=== PATIENT | male | born 1950 | race Caucasian/White ===

== ENCOUNTER → 2023-09-01 08:52 | Outpatient (REF) | payer MEDICARE, BC, SELFPAY | LOC: DHCBC HW 08:52 | PROVIDERS: ATTENDING PHYSICIAN Internal Medicine Cardiovascular Disease; FAMILY PHYSICIAN Internal Medicine | DX: H34.239 Retinal artery branch occlusion, unspecified eye (principal) | CPT/HCPCS: 93306 ==

== ENCOUNTER → 2023-09-20 10:14 | Outpatient (REF) | payer MEDICARE, BC, SELFPAY | LOC: HWRAD 10:14 | PROVIDERS: ATTENDING PHYSICIAN Internal Medicine | DX: M54.50 Low back pain, unspecified (principal) | CPT/HCPCS: 72110 ==

== ENCOUNTER → 2023-11-05 12:33 | Outpatient (REF) | payer MEDICARE, BC, SELFPAY | LOC: HWRAD 12:33 | PROVIDERS: ATTENDING PHYSICIAN Internal Medicine | DX: R10.9 Unspecified abdominal pain (principal) | CPT/HCPCS: 74176 ==

== ENCOUNTER 2024-01-10 06:09 | Day surgery (SDC) | payer MEDICARE, BC, SELFPAY ==
[2024-01-10] VITALS (8 sets, daily range): BP systolic 163–186; BP diastolic 72–104
[2024-01-10] MEDS: TYLENOL 1000 MG PO (06:37)
[2024-01-10] MEDS: NORMOSOL-R 1000 IV (06:38)
--- NOTE | 2024-01-10 07:02 | HP.FOC2 ---
Focused History & Physical
Chief Complaint
HPI:
Chief Complaint: Right inguinal hernia
HPI / Indication for Planned Procedure: 73-year-old male recently seen in outpatient surgical evaluation secondary to right inguinal swelling and discomfort. Symptoms particularly prominent over the past few months. Hernia remains reducible.
Outpatient evaluation confirmed the presence of reducible right inguinal hernia. He presents today for scheduled operative correction.
Relevant Past Medical History: Other (Gout, BPH, hypercholesterolemia, hypertension, CKD 3, left renal artery stenosis, osteoarthritis, CAD)
Relevant Social History: Negative
Relevant Family History: Negative
Relevant Past Surgical History: Positive for (Multiple coronary stents, cardiac catheterization, CABG times 08/2020)
Review of Systems
Review of Pertinent Systems: All Systems Negative
Medication
See Medication form for detailed medications: Yes
Medication List (including Herbals & OTC):
cholecalciferol (vitamin D3) 25 mcg (1,000 unit) chewable tablet 1,000 unit PO DAILY Supplement 06/17/10
lorazepam 1 mg tablet 1 mg PO BIDPRN PRN anxiety 06/17/10
sertraline 50 mg tablet 50 mg PO BID Mental health 06/17/10
docusate sodium 100 mg capsule (Colace) 100 mg PO PRN PRN constipation 03/09/21
simvastatin 40 mg tablet 30 mg PO DAILY High cholesterol 03/09/21
acetaminophen 325 mg tablet 650 mg (2 x 325 mg) PO Q6HPRN PRN mild pain,headache,temp >101F 03/30/21
allopurinol 100 mg tablet 100 mg PO DAILY 03/30/21
aspirin 81 mg chewable tablet 81 mg PO DAILY 03/30/21
nifedipine 60 mg tablet,extended release 24 hr 60 mg PO DAILY 01/07/24
Medications Reviewed: Yes
Allergies and Reactions
Patient has Allergies: Yes
Noted Allergies and Reactions:
Allergy/AdvReac Type Severity Reaction Status Date / Time
rosuvastatin [From Crestor] Allergy Mild MYALGIAS Verified 01/10/24 06:14
atorvastatin [From Lipitor] Allergy MYALGIAS Verified 01/10/24 06:14
Pertinent Physical Exam
All Other Systems: Negative
Head/Neck: Normal
Lungs: Normal
Heart: Normal
Abdomen: Other (Reducible right inguinal hernia, epigastric reducible hernia)
Extremities: Normal
Neurological: Normal
Diagnosis / Assessment
73-year-old male presenting for scheduled operative correction symptomatic right inguinal hernia
Plan / Procedure
Robotic assisted laparoscopic repair right inguinal hernia with mesh
Anesthesia/Sedation to be done by Anesthesia Provider: Yes
--- NOTE | 2024-01-10 07:05 | W.SUR.PREOP ---
Pre-Operative Surgical Note
-
I have examined this patient prior to the performance of the scheduled procedure.
The patient's condition is unchanged from the time of the current History and
Physical and the patient is able to undergo the scheduled procedure.
--- NOTE | 2024-01-10 08:56 | W.IMMPOSTOP ---
Addendum entered and electronically signed by Asad Thurston MD 01/10/24 09:11:
#[id number]
Original Note:
Surgical Immed Post Op Note
-
Primary Surgeon: Bertrand
Assisting Surgeon: Umu Oates PA-c
Pre-op Diagnosis: RIH
Post-op Diagnosis: RIH - indirect
Procedure Performed: RAL JOSÉ repair RIH with mesh
Anesthesia Type: GETA + 0.25% Marcaine
Specimen / Cultures: none
Estimated Blood Loss: 8mL
Complications: none immediate
Operative Findings: Right inguinal hernia - indirect with sizable defect/hernia sack. no lipoma of cord structures. 3d max ex large; mid wt mesh repair. rTAPP.
The assistance of Umu Oates PA-c was required due to the complexity of the procedure. During the procedure Umu Oates PA-c assisted with robotic instrumentation and suture/material exchanges and closure of the incision sites.
== END 2024-01-10 10:28 | disposition home or self-care (01) ==
LOC: SDS 06:09
PROVIDERS: ATTENDING PHYSICIAN Surgery
DX: K40.90 Unilateral inguinal hernia, without obstruction or gangrene, not specified as recurrent (principal)
CPT/HCPCS: 49650; C1781

== ENCOUNTER → 2024-04-07 10:46 | Outpatient (REF) | payer MEDICARE, BC, SELFPAY | LOC: DHCBC/DCA 10:46 | PROVIDERS: ATTENDING PHYSICIAN Internal Medicine Cardiovascular Disease; FAMILY PHYSICIAN Internal Medicine | DX: I25.10 Atherosclerotic heart disease of native coronary artery without angina pectoris (principal); R07.89 Other chest pain | CPT/HCPCS: 78452; 93017; A9500; J2785 ==

== ENCOUNTER → 2025-02-28 09:30 | Outpatient (REF) | payer MEDICARE, BC, SELFPAY | LOC: HWRAD 09:30 | PROVIDERS: ATTENDING PHYSICIAN Internal Medicine | DX: R41.3 Other amnesia (principal); R68.89 Other general symptoms and signs; R26.89 Other abnormalities of gait and mobility | CPT/HCPCS: 70450 ==